=== PATIENT | male | born 1970 | race Caucasian/White ===

== ENCOUNTER 2025-02-07 12:53 | Emergency (ER) | payer OTHER, SELFPAY ==
[2025-02-07 12:55] VITALS: BP 153/98
[2025-02-07] MEDS: NSS 1000 IV (13:49)
[2025-02-07 14:21] LABS: % Basophils 0.2 % (0-2); % Immature Granulocytes 0.3 % (0-0.5); % Lymphocytes 4.2 % (20.5-51.1); % Monocytes 3.4 % (1.7-9.3); % Neutrophils 91.9 % (42.2-75.2); Absolute Lymphocytes 0.5 10^3/uL (1.2-3.4); Absolute Monocytes 0.4 10^3/uL (0.1-0.6); Hematocrit 45.9 % (39.0-52.0); Mean Corp Hgb Conc. 34.9 g/dL (33.0-37.0); Mean Corpuscular Hgb 31.3 pg (27.0-31.0); Mean Corpuscular Volume 89.8 fL (80.0-94.0); Mean Platelet Volume 9.8 fL (7.4-10.4); Nucleated Red Blood Cells % 0 % (-); Platelet Count 251 10^3/uL (130-400); Red Blood Cell Count 5.11 10^6/uL (4.70-6.10); Red Cell Dist. Width 11.8 % (11.5-14.5)
[2025-02-07 14:24] VITALS: BP 125/82
[2025-02-07 14:24] LABS: D-Dimer 1.45 ug/mlFEU (0.00-0.50)
[2025-02-07 14:33] LABS: ALT (SGPT) 54 U/L (0-50); AST (SGOT) 31 U/L (17-59); Albumin 4.4 g/dl (3.5-5.0); Alkaline Phosphatase 52 U/L (38-126); Blood Urea Nitrogen 19 mg/dl (9-20); Calcium 9.8 mg/dl (8.4-10.2); Carbon Dioxide 24 mmol/L (22-30); Chloride 108 mmol/L (98-107); Glucose 138 mg/dl (70-99); Potassium 4.4 mmol/L (3.5-5.1); Sodium 140 mmol/L (135-145); Total Bilirubin 0.5 mg/dl (0.2-1.3); Total Protein 7.3 g/dl (6.3-8.2); eGFR > 60.00
[2025-02-07 15:03] LABS: TSH Reflex To Free T4 0.39 uIU/ml (0.47-4.68)
[2025-02-07 16:02] LABS: Free T4 1.04 ng/dl (0.78-2.19)
[2025-02-07 16:46] VITALS: BP 131/81
--- NOTE | 2025-02-07 18:05 | ED.GENMED ---
History of Present Illness
General
Chief Complaint: Cardiac Symptoms
Source: patient
Exam Limitations: none
Time Seen by Provider: 02/07/25 13:33
History of Present Illness
History of Present Illness:
54-year-old male presents for evaluation of tachycardia over the past several days. He received an epidural steroid injection yesterday but they noticed that his heart rate was high. He has been on and off prednisone over the past 2 weeks for low
back pain with radiculopathy. His heart rate has been in the 120s. He denies shortness of breath or chest pain. No recent travel or surgery. No fever. No rash. He does not take any medications regularly. No other complaints at this time
Phy Exam
Physical Exam
Physical Exam:
General: Well-appearing male no acute respiratory distress
HEENT: Normocephalic atraumatic
Heart: Tachycardic but regular
Lungs: Clear no wheeze
Extremities: No cyanosis or edema
Skin is warm no rash
Course
Orders/Labs/Results
Orders:
Orders
02/07/25 12:54
Electrocardiogram (*1) Urgent
Reason for Study: Bradycardia / Tachycardia
02/07/25 12:55
EKG- Treatment ONCE
02/07/25 13:46
Complete Blood Count/With Diff Urgent
Comprehensive Metabolic Panel Urgent
D-Dimer Urgent
Free T4 Urgent
TSH Reflex To Free T4 Urgent
02/07/25 13:49
0.9% Sodium Chloride 1000 ml [Nss] 1,000 ml IV BOLUS
02/07/25 14:36
CT Chest PE Study Urgent
Comment:
Reason For Exam: elevated d-dimer, tachycardia
02/07/25 16:19
Venous Doppler Lwr Ext Rt [US Periph Venous LOWER Ext RT] Urgent
Comment:
Reason For Exam: pain behind knee, elevated d-dimer
Abnormal Lab Results
02/07/25
13:46
WBC 12.0 H 10^3/uL
(4.8-10.8)
MCH 31.3 H pg
(27.0-31.0)
Absolute Neuts (auto) 11.0 H 10^3/uL
(1.4-6.5)
Absolute Lymphs (auto) 0.5 L 10^3/uL
(1.2-3.4)
Neutrophils % 91.9 H %
(42.2-75.2)
Lymphocytes % 4.2 L %
(20.5-51.1)
D-Dimer 1.45 H ug/mlFEU
(0.00-0.50)
Chloride 108 H mmol/L
(98-107)
Glucose 138 H mg/dl
(70-99)
ALT 54 H U/L
(0-50)
TSH (Reflex) 0.39 L uIU/ml
(0.47-4.68)
02/07/25 13:46
02/07/25 13:46
Vital Signs
Initial and Last Documented VS:
Initial Vital Signs
Temp Pulse Resp BP Pulse Ox
98.6 F 135 16 153/98 98
02/07/25 12:55 02/07/25 12:55 02/07/25 12:55 02/07/25 12:55 02/07/25 12:55
Last Documented Vital Signs
Temp Pulse Resp BP Pulse Ox
98.6 F 99 16 131/81 96
02/07/25 12:55 02/07/25 14:24 02/07/25 14:24 02/07/25 16:46 02/07/25 16:46
MDM/Problems Addressed
Differential Diagnosis Includes:
Tachycardia relatively asymptomatic. Differential could include infectious source versus anemia versus electrolyte abnormality versus PE versus medication reaction versus anxiety
Labs reviewed which are normal other than for an elevated D-dimer. This prompted PE study of the chest as well as an ultrasound of the right leg as he has pain to the right knee.
*Critical Care Note
Total Time (30-74mins, 75-104mins- exclusive of procedures): Not Applicable
Update Note
Update Note:
PE study negative ultrasound negative. Patient was hydrated. While at rest and not talking to any providers his heart rate is in the 80s. Suspect small component of underlying anxiety. Stable for discharge
ED Attending Note
-
Portions of this chart may have been created with voice recognition software.� Occasional wrong word or��sound alike� substitutions may have occurred due to the inherent limitations of voice recognition software.
Discharge Plan
Departure
Patient Disposition: Home (Routine Discharge)
Date of Disposition: 02/07/25
Time of Disposition: 18:09
Patient with high blood pressure during this ER visit?: No
Discharge Problem:
Tachycardia
Instructions: Tachycardia
Prescriptions:
New
metoprolol tartrate 25 mg tablet
25 mg PO DAILY PRN (Reason: fast heart rate) Qty: 10 0RF
Referrals:
Desmond Elam MD [Family Provider, Family Practice]
Activity Restrictions/Additional Instructions:
Stay hydrated. Rest. Turn if worse otherwise follow-up with your doctor. Use metoprolol if needed for fast heart rate
Interventions
Interventions:
*Risk Screen - Suicide Last Done: 02/07/25 12:55
*General Assessment Last Done: 02/07/25 13:43
*Neglect/Abuse Screening Last Done: 02/07/25 12:55
*ED- Fall Risk Assessment Last Done: 02/07/25 13:43
*ED COVID-19 Vaccine History Last Done: 02/07/25 13:43
ED- Pulmonary Assessment Last Done: 02/07/25 13:43
ED- Cardiac Assessment Last Done: 02/07/25 13:43
Discharge Date and Time
Print Language: NAMIBIAN
[2025-02-07] MEDS: LOPRESSOR 25 MG PO (19:16)
== END 2025-02-07 19:28 | disposition home or self-care (01) ==
LOC: EMR 12:53
PROVIDERS: Physician Assistant; EMERGENCY PHYSICIAN Student in an Organized Health Care Education/Training Program; FAMILY PHYSICIAN Family Medicine
DX: R00.0 Tachycardia, unspecified (principal); M54.50 Low back pain, unspecified
CPT/HCPCS: 99284; 96360; 71275; 80053; 84439; 84443; 85025; 85379; 93005; 93971; Q9967